=== PATIENT | female | born 1960 ===

== ENCOUNTER 2017-10-09 12:48 | Emergency (ER) | payer BC ==
[2017-10-09 13:01] VITALS: BMI 25.7
[2017-10-09 13:03] VITALS: BP 136/84; PULSE 104; RESP 18; TEMP 97.8; O2SAT 98
[2017-10-09] MEDS ORDERED: Lidocaine 2% Inj (20ml) INFIL ONE (13:49)
--- NOTE | 2017-10-09 13:50 | C.PDOC ---
History Of Present Illness The patietn presents to the ED for evaluation of a lump to his right axillary region that has been increasing in size over the past 3 days. Patient has been applying warm compresses to the area without relief. He denies fever, chills, drainage, chest pain, shortness of breath. Time Seen by Provider: 10/09/17 13:21 Chief Complaint (Nursing): Abnormal Skin Integrity History Per: Patient History/Exam Limitations: no limitations Onset/Duration Of Symptoms: Days (3) Current Symptoms Are (Timing): Still Present Additional History Per: Patient Past Medical History Reviewed: Historical Data, Nursing Documentation, Vital Signs Vital Signs: Last Vital Signs Temp 97.8 F 10/09/17 13:02 Pulse 104 H 10/09/17 13:02 Resp 18 10/09/17 13:02 BP 136/84 10/09/17 13:02 Pulse Ox 98 10/09/17 21:12 - Medical History PMH: HTN Surgical History: No Surg Hx Family History: States: Unknown Family Hx - Social History Hx Alcohol Use: No Hx Substance Use: No - Immunization History Hx Tetanus Toxoid Vaccination: No Hx Influenza Vaccination: No Hx Pneumococcal Vaccination: No Review Of Systems Constitutional: Negative for: Fever, Chills Cardiovascular: Negative for: Chest Pain Respiratory: Negative for: Shortness of Breath Skin: Positive for: Other (lump to right axillary region ) Physical Exam - Physical Exam Appears: Non-toxic, No Acute Distress Skin: Normal Color, Warm, Dry, Other (2x2cm area of erythema, swelling and fluctuance to right axillary region. no surrounding erythema, no streaking ) Head: Atraumatic, Normacephalic Eye(s): bilateral: Normal Inspection Oral Mucosa: Moist Neck: Supple Chest: Symmetrical, No Deformity, No Tenderness Cardiovascular: Rhythm Regular, No Murmur Respiratory: Normal Breath Sounds, No Rales, No Rhonchi, No Wheezing Extremity: Normal ROM, Capillary Refill (less than 2 seconds ) Neurological/Psych: Oriented x3, Normal Speech, Normal Cognition ED Course And Treatment O2 Sat by Pulse Oximetry: 98 (on RA ) Pulse Ox Interpretation: Normal - Incision & Drainage Of Abscess Anesthesia: Lidocaine 2% Procedure: Incised W/Scalpel Blade#: (11), Drained Pus, Irrigated Cavity W/ Saline, Probed To Break Up Loculations, Packed W/Gauze, Cultures Obtained And Sent To Lab Medical Decision Making Medical Decision Making: Progress: Doryx PO and Motrin PO administered. See I&D procedure note. Disposition - Disposition Referrals: Naun Mejia Jr., MD [Medical Doctor] - Disposition: HOME/ ROUTINE Disposition Time: 15:03 Condition: GOOD Additional Instructions: RETURN IN 2 DAYS FOR PACKING REMOVAL AND WOUND CHECK. 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 - Scribe Statement The provider has reviewed the documentation as recorded by the Scribe (Sakina Alvarado) All medical record entries made by the Scribe were at my direction and personally dictated by me. I have reviewed the chart and agree that the record accurately reflects my personal performance of the history, physical exam, medical decision making, and the department course for this patient. I have also personally directed, reviewed, and agree with the discharge instructions and disposition.
[2017-10-09] MEDS ORDERED: Lidocaine 2% MPF (5 ml) Inj ONE (14:08)
== END 2017-10-09 15:14 | disposition home or self-care (01) ==
LOC: C.ER 12:48
DX: L02.411 Cutaneous abscess of right axilla (principal); L03.111 Cellulitis of right axilla; I10 Essential (primary) hypertension